=== PATIENT | female | born 1965 | race Caucasian/White ===

== ENCOUNTER → 2019-11-01 | Outpatient (CLI) | payer OTHER ==
[2019-11-01 13:11] VITALS: RESP 16
--- NOTE | 2019-11-01 13:44 | P.PAINCN ---
History of Present Illness - Reason for Consult Consult date: 11/01/19 - History of Present Illness This is 54 years old female with a chronic history of severe low back pain, started 3 years ago after she was trying to lift up her mom, after she fell, from that time on she started complaining of severe low back pain, the pain mostly in the low back area with occasional radiation to the posterior aspect of her left lower extremity, the pain is constant and increases with any activity or any changing in position, she tried physical therapy with minimal benefit, and she is currently on tramadol milligrams every 8 hours and Neurontin 300 mg every 8 hours and she is getting to moderate benefit from it, the intensity of the pain interfering with her quality of life, and preventing her from doing activities of daily livings, she denies any fever or night sweats which she denies any change in the bowel movement or urination, and she denies any motor or sensory deficit Past Medical History Past Medical History: GERD/Reflux Additional Past Medical History / Comment(s): CHRONIC BACK PAIN. STOMACH ULCER History of Any Multi-Drug Resistant Organisms: None Reported Past Surgical History: Bariatric Surgery, Cholecystectomy, Hysterectomy, Joint Replacement, Uterine Ablation Additional Past Surgical History / Comment(s): GASTRIC BYPASS-1999. LT RUSSEL. EGD Past Anesthesia/Blood Transfusion Reactions: No Reported Reaction Past Psychological History: Depression Additional Psychological History / Comment(s): DEPRESSION OFF AND ON-OK AT THIS TIME Smoking Status: Current every day smoker Past Alcohol Use History: None Reported Additional Past Alcohol Use History / Comment(s): SMOKES 1 PPD SINCE AGE 17 Past Drug Use History: Marijuana Additional Drug Use History / Comment(s): USES MARIJUANA USUALLY AT HS - Past Family History Mother Family Medical History: No Reported History Medications and Allergies Home Medications Medication Instructions Recorded Confirmed Type ALPRAZolam [Xanax] 0.25 mg PO BID PRN 06/08/19 10/31/19 History Acetaminophen [Tylenol 8 Hour] 1,300 mg PO Q6H 06/08/19 10/31/19 History Gabapentin [Neurontin] 300 mg PO TID 06/08/19 10/31/19 History Omeprazole 40 mg PO DAILY 06/08/19 10/31/19 History Ranitidine HCl 150 mg PO DAILY 06/08/19 10/31/19 History traMADol HCL [Ultram] 100 mg PO Q8H 06/08/19 10/31/19 History Allergies Allergy/AdvReac Type Severity Reaction Status Date / Time Milk Containing Products Allergy Rash/Hives Verified 11/01/19 13:03 Physical Exam Vitals: Vital Signs Resp 11/01/19 13:04 16 REVIEW OF ORGAN SYSTEMS: CONSTITUTIONAL: No fevers or chills. No recent weight loss. EYES: denies troubles with vision. HEENT: No difficulties with hearing. No nosebleeds. No difficulty swallowing. RESPIRATORY: Denies any troubles with breathing or dyspnea on exertion. CARDIOVASCULAR: Denies any chest pain, palpitations, or recent heart attacks. GASTROINTESTINAL: Denies fatty food intolerance. Has change in bowel habits and gas bloat. GENITOURINARY: Denies any blood in urine. Has increased urinary frequency. NEUROLOGICAL: no numbness and tingling along the distal extremities. No seizure disorders or headaches. MUSCULOSKELETAL: Has low back pain. SKIN:no skin cancer. No rash. PSYCHIATRIC: Denies current depression or suicidal thou ghts. ENDOCRINE: Denies current thyroid disorders. Denies any blood sugar glucose intolerance. HEME/LYMPHATIC: Denies any lumps and bumps around the neck. History of deep venous thrombosis. ALLERGY/IMMUNOLOGY: No immunoglobulin therapy. No immune deficiencies. BREAST: Denies current breast lumps, pain or nipple discharge. Physical Examinations : Constitutiona : Cooperative , not in acute distress . HEENT : nech : supple , no Lymphadenopathy , normal thyroid size . : eyes no ptosis , no icterus, no photophobia . : ENT normal of hearing , normal oropharynx , no Thrush . Respiratory : Chest clear to auscultations Bilaterally , no wheezing , no Rhonchi . Cardiovascula : regular rate and rhythem , S1 , S2 , no S3 , no S4. Gastrointestina : abdomen soft no tenderness , bowel sounds , no organomegally . Genitourinary : Defferred . neurologic : Cranial nerve II to XII intact , no focal neurological deffecit . psychatric : alert , oriented X 3 , appropriate affect , intact judgment and insight . Lymphatic : no Lymphadenopathy . musculoskeltal : Lumber spine moter stegnth lower extremities ,thigh and legs 5/5 Right side , 5/5 Left side deep tendon reflexes : normal Knee Jerk , normal ankle Jerk lumber facet Loading Test= positive Right , positive Left Range of motion of the lumbar spine Flexion 60 degrees, extension 10 degrees strait leg raising test = negative bilaterally Fabere test= negative bilaterally NO tenderness over the Sacroiliac joint on the Right , and Left sides . Results Comments: MRI of the lumbar spine = done at [facility]= L2 level lumbar bulging disc disease and multilevel lumbar facet, and multilevel lumbar disc herniation Assessment and Plan Plan: Assessment and plan=1-lumbar spondylosis with lumbar facet arthropathy. 2-lumbar herniated disc disease. 3-lumbar spinal stenosis. Patient could benefit from diagnostic medial branch block L2, L3, L4, L5, and if it is positive we'll proceed with RFA. Patient should continue her current pain medication Neurontin 300 3 times a day and Ultram 3 times a day. Time with Patient: Greater than 30 PQRS Measure Charge Sheet Measure #130: Documentation of Current Meds in Medical Chart: Patient's medications documented in chart Measure #226: Tobacco Use: Screen & Cessation Intervention: Pt screened for tobacco use AND intervention given Measure #111: Pneumonia Vaccination: Pneumococcal vaccine NOT administered or previously given Measure #47: Advance Care Plan: Advance care planning discussed & documented, pt chose/unable to give Measure #412: Opioid Treatment Agreement: No documentation of signed opioid treatment agreement Measure #408: Opioid Therapy Follow-up Evaluation: Patient had NO f/u eval minimum every 3 months during opioid therapy Measure #317: Preventitive Care & Scrn High Bld Press & F/U: Normal blood pressure, f/u not required Measure #128: Body Mass Index (BMI) Screening & Follow-up: BMI documented BELOW normal parameters - f/u documented Measure #131: Pain Assessment & Follow-up: Pain positive & plan documented Measure #431: Unhealthy Alcohol Use Preventative Care & Scrn: Patient not identified as an unhealthy alcohol user PQRS Narrative: Smoking Status Current every day smoker Pain Intensity [Lower Back] 8 Scale Used Numeric (1 - 10) Hx Alcohol Use (MH) No Home Medications: Ambulatory Orders ALPRAZolam [Xanax] 0.25 mg PO BID PRN 06/08/19 Acetaminophen [Tylenol 8 Hour] 1,300 mg PO Q6H 06/08/19 Gabapentin [Neurontin] 300 mg PO TID 06/08/19 Omeprazole 40 mg PO DAILY 06/08/19 Ranitidine HCl 150 mg PO DAILY 06/08/19 traMADol HCL [Ultram] 100 mg PO Q8H 06/08/19
== END | disposition home or self-care (01) ==
LOC: PNWHC3 12:56
PROVIDERS: ATTEND Specialist
DX: M48.061 Spinal stenosis, lumbar region without neurogenic claudication (principal); M51.26 Other intervertebral disc displacement, lumbar region; M47.816 Spondylosis without myelopathy or radiculopathy, lumbar region; F17.200 Nicotine dependence, unspecified, uncomplicated; Z79.891 Long term (current) use of opiate analgesic; Z79.899 Other long term (current) drug therapy
CPT/HCPCS: 99211

== ENCOUNTER 2019-11-15 06:03 | Day surgery (SDC) | payer OTHER ==
[2019-11-11 16:06] VITALS: BMI 28.8
[~2019-11-15 06:03] MED LIST: LACTATED RINGERS 1,000 ML IV SCH
[2019-11-15 06:24] VITALS: TEMP 96
[2019-11-15] MEDS ORDERED: LIDOCAINE 1% (10MG/ML) FOR IV START INTRADERMA ONE (06:41)
[2019-11-15] MEDS ORDERED: IOPAMIDOL M200 10 ML VIAL ONE (06:54)
[2019-11-15] MEDS ORDERED: MIDAZOLAM 2 MG/2 ML VIAL ONE (06:54)
[2019-11-15] MEDS ORDERED: LIDOCAINE 4% (PF) 5 ML AMP ONE (06:54)
--- NOTE | 2019-11-15 07:40 | P.PCN ---
Date of Procedure: 11/15/19 Procedure(s) Performed: PREOPERATIVE DIAGNOSIS : Lumbar spondylosis with Facet Arthropathy without myelopathy POSTOPERATIVE DIAGNOSIS: same PROCEDURE: First Diagnostic lumbar medial branch block with fluoroscopy at L2, L3, L4, L5 [bilateral] which covers facets L3-4, L4-5 and L5-S1 ANESTHESIA: Local anesthetic; moderate IV sedation with Versed 2 mg, sedation time 29 minutes Fluoroscopy was used for the procedure and images were saved in the radiology portion of the chart. Surgeon: Jalil Turcios MD PROCEDURE INDICATION: Lumbar back pain without radiculopathy, not responsive to conservative management. PROCEDURE DESCRIPTION: the patient was seen and identified in the preop holding area , risks and benefits and possible complications of the procedure and alternatives were discussed with the patient, and the patient agreed to proceed with the procedure and signed the consent . IV was started , vital signs were monitored during the procedure and fluoroscopy was used to maximize the benefit and accuracy of the needle placement, and sedation was given to decrease patient anxiety. Patient was taken to the procedure room and placed in prone position. The lumbar region was prepped using chlorhexidineX-2. Under strict sterile technique using AP fluoroscopy the bilateral sacral ala were identified and using ipsilateral oblique fluoroscopy ,the junction of the transverse process and the superior articulating process of the L3, L4, L5 vertebra which corresponds to the fluoroscopy image of the eye of the Jerardo dog for the medial branches were identified. Subsequently, after local infiltration of skin with lidocaine 1% 0.2 mL at each level , a 25-gauge 3.5" Quincke-type needle was placed at the junction of the base of the transverse process and the superior articular process at the appropriate level as well as the sacral ala, and the needle was advanced until the periosteum contacted, needle placement confirmed with AP and oblique fluoroscopy, 0.2 mL of Isovue 200 per level was injected which revealed no vascular uptake and after negative aspiration, 0.5 mL of lidocaine 4% was injected at each level and the needle subsequently removed . At the end of the procedure and the needles were removed and a bandage applied after the skin was cleaned. The patient was taken to recovery room in stable condition and monitors in the recovery room for 20-30 minutes and discharged home in stable condition after discharge criteria met and patient will follow up in clinic in 2 weeks EBL: Minimal COMPLICATION: None. Of note, the fluoroscopy machine stopped working during the procedure and had to be replaced with a working machine.
[2019-11-15] MEDS ORDERED: IV FLUID CONTINUATION 200 ML IV ONE (07:42)
[2019-11-15 07:59] VITALS: RESP 20
[2019-11-15 08:08] VITALS: BP 109/74; PULSE 89
--- NOTE | 2019-11-15 16:28 | FL ---
EXAMINATION TYPE: FL guided pain mgmt statistic DATE OF EXAM: 11/15/2019 CLINICAL HISTORY: Bilateral facet blocks of lumbar spine TECHNIQUE: Fluoroscopy. COMPARISON: None. FINDINGS: Fluoroscopic guidance was provided during procedure performed by Dr. Turcios. A total of 0.8 minutes of fluoroscopic time was utilized during the procedure and 7 spot images was acquired. IMPRESSION: As Above.
== END 2019-11-15 08:12 | disposition home or self-care (01) ==
LOC: ORPAIN 06:03
PROVIDERS: ATTEND Anesthesiology
DX: M47.816 Spondylosis without myelopathy or radiculopathy, lumbar region (principal); Z90.710 Acquired absence of both cervix and uterus
CPT/HCPCS: 64493; 64494; 64495; J2001; J2250; Q9966; 99152; 99153

== ENCOUNTER 2020-01-10 06:39 | Day surgery (SDC) | payer OTHER ==
[2019-12-19 13:49] VITALS: BMI 28.8
[2020-01-10 07:02] VITALS: TEMP 97
[2020-01-10] MEDS ORDERED: ROPIVACAINE 5MG/ML 20ML VIAL ONE (07:19)
[2020-01-10] MEDS ORDERED: MIDAZOLAM 2 MG/2 ML VIAL ONE (07:19)
[2020-01-10] MEDS ORDERED: TRIAMCINOLONE ACETONIDE 40 MG/ML 1 ML VIAL ONE (07:19)
--- NOTE | 2020-01-10 07:35 | P.PCN ---
Date of Procedure: 01/10/20 Surgeon: Betty Jarrett Pathology: none sent Condition: stable Disposition: PACU Description of Procedure: PREOPERATIVE DIAGNOSIS : 1- Lumbar spondylosis with Facet Arthropathy without myelopathy . 2- Lumber degenerative disc disease POSTOPERATIVE DIAGNOSIS: 1- Lumbar spondylosis with Facet Arthropathy without myelopathy . 2- Lumber degenerative disc disease PROCEDURE: Diagnostic bilateral L3 -4 , L4 -5 , and L5-S1 medial branch block under fluoroscopy Physician: Betty Jarrett MD ANESTHESIA: Local with 1% lidocaine; IV moderate conscious sedation with Versed 2 mg . EBL: Negligible COMPLICATION: None. PROCEDURE INDICATION: Chronic low back pain secondary to Facet arthropathy unresponsive to conservative treatment. PROCEDURE DESCRIPTION: the patient was seen and identified in the preop holding area , risks and benefits and possible complications of the procedure and alternatives were discussed with the patient, and the patient agreed to proceed with the procedure and signed the consent. IV was started and vital signs monitored during the procedure and fluoroscopy was used to maximize the benefit and accuracy of the needle placement, sedation was given to decrease patient anxiety, patient was taken to the procedure room and placed in prone position vital signs monitored. The patient was brought into the procedure room and placed in prone position. Skin was prepped with Chloraprep and draped in a sterile manner. Lidocaine 1% was used to numb the skin up at the target points that were chosen as follows: at the L5-S1 level which corresponds to the dorsal ramus of L5 the target points were at the superior medial aspect of the sacral ala on each side of the spine on the AP view of fluoroscopy, and for theL2, L3 and L4 medial branches the target points were the connection between the transverse process and the superior to go process of L3, L4 and L5 respectively on the oblique views of fluoroscopy. I used 22-gauge 3-1/2 inch Quincke spinal needles for this procedure and after contacting bone at the target points mentioned above I injected 1 mL of a mixture of Kenalog 40 mg +5 MLS of Ropivacaine 0.5% PF . Patient tolerated procedure well. At the end of the procedure the needles removed and a bandage applied after the skin was cleaned the cleaning solution. patient was then taken to the recovery room in stable condition and monitored in the recovery room for 20-30 minutes and discharged home in stable condition after discharge criteria met . A copy of the needle placement picture was saved to the C-arm machine.
[2020-01-10 07:57] VITALS: RESP 16
[2020-01-10] MEDS ORDERED: IV FLUID CONTINUATION 500 ML IV ONE (08:00)
[2020-01-10 08:05] VITALS: BP 114/69; PULSE 81
--- NOTE | 2020-01-10 09:11 | FL ---
Fluoroscopy HISTORY: Pain 8 seconds fluoroscopy time supplied to the referring clinician. 5 intraoperative C-arm images docume nt the procedure. See dictated report from anesthesia.
== END 2020-01-10 08:21 | disposition home or self-care (01) ==
LOC: ORPAIN 06:39
PROVIDERS: ATTEND Anesthesiology
DX: G89.29 Other chronic pain (principal); M47.816 Spondylosis without myelopathy or radiculopathy, lumbar region; E07.9 Disorder of thyroid, unspecified; Z86.010 Personal history of colon polyps
CPT/HCPCS: 64493; 64494; 64495; J2250; J3301; J2795; 99152

== ENCOUNTER → 2020-02-01 | Outpatient (CLI) | payer OTHER ==
[2020-02-01 08:15] VITALS: BP 124/80; PULSE 81; RESP 14
--- NOTE | 2020-02-01 08:18 | P.PAINPG ---
Subjective Progress Note Date: 02/01/20 This is a follow-up visit for this 54 years old female with a chronic history of severe low back pain she is diagnosed with lumbar spondylosis with lumbar facet arthropathy, lumbar spinal stenosis and lumbar disc herniation, status post diagnostic medial branch block lumbar area x2 , she reported that her VAS before the first diagnostic block was 8/10 , and that he is dropped to 0-1/10 after the block , and the pain relief lasted for several hours, and the second diagnostic block her VAS was 8/10 , and the VAS dropped to 0/10 after the block and the pain relief was for 1-2 days, unfortunately the pain came back and she is currently complaining of severe continuous pain in the low back area which is constant, increased with any activity, she denies any fever or night sweats denies any motor or sensory deficit Objective - Exam Constitutiona : Cooperative , not in acute distress . HEENT : nech : supple , no Lymphadenopathy , normal thyroid size . : eyes no ptosis , no icterus, no photophobia . neurologic : Cranial nerve II to XII intact , no focal neurological deffecit . psychatric : alert , oriented X 3 , appropriate affect , intact judgment and insight . Lymphatic : no Lymphadenopathy . musculoskeltal : Lumber spine moter stegnth lower extremities ,thigh and legs 5/5 Right side , 5/5 Left side deep tendon reflexes : normal Knee Jerk , normal ankle Jerk lumber facet Loading Test= positive Right , positive Left Range of motion of the lumbar spine Flexion 60 degrees, extension 10 degrees strait leg raising test = negative bilaterally Fabere test= negative bilaterally NO tenderness over the Sacroiliac joint on the Right , and Left sides Assessment and Plan Plan: Assessment and plan=1-lumbar spondylosis with lumbar facet arthropathy. 2-lumbar herniated disc disease. 3-lumbar spinal stenosis. Patient had positive results after diagnostic medial branch block L2, L3, L4, L5, and we will proceed with RFA. Time with Patient: Less than 30 PQRS Measure Charge Sheet Measure #130: Documentation of Current Meds in Medical Chart: Patient's medications documented in chart Measure #226: Tobacco Use: Screen & Cessation Intervention: Pt screened for tobacco use AND intervention given Measure #111: Pneumonia Vaccination: Pneumococcal vaccine NOT administered or previously given Measure #47: Advance Care Plan: Advance care planning discussed & documented, pt chose/unable to give Measure #412: Opioid Treatment Agreement: No documentation of signed opioid treatment agreement Measure #408: Opioid Therapy Follow-up Evaluation: Patient had NO f/u eval minimum every 3 months during opioid therapy Measure #317: Preventitive Care & Scrn High Bld Press & F/U: Normal blood pressure, f/u not required Measure #128: Body Mass Index (BMI) Screening & Follow-up: BMI documented ABOVE normal parameters - f/u documented Measure #131: Pain Assessment & Follow-up: Pain positive & plan documented, Follow-up scheduled Measure #431: Unhealthy Alcohol Use Preventative Care & Scrn: Patient not identified as an unhealthy alcohol user PQRS Narrative: Smoking Status Current every day smoker Pain Intensity [Back] 7 Hx Alcohol Use (MH) No Home Medications: Ambulatory Orders ALPRAZolam [Xanax] 0.25 mg PO BID PRN 06/08/19 Acetaminophen [Tylenol 8 Hour] 1,300 mg PO Q6H 06/08/19 Gabapentin [Neurontin] 300 mg PO TID 06/08/19 Omeprazole 40 mg PO DAILY 06/08/19 traMADol HCL [Ultram] 100 mg PO Q8H 06/08/19 Albuterol Inhaler [Ventolin Hfa Inhaler] 2 puff INHALATION BID PRN 12/19/19 Calcium Carbonate [Tums] 500 mg PO TID PRN 01/05/20 Ranitidine HCl [Zantac] 1 cap PO DAILY PRN 01/10/20 Controlled Substance Measures - Controlled Substance Measures Is patient prescribed a controlled substance at discharge?: No
== END | disposition home or self-care (01) ==
LOC: PNWHC3 07:32
PROVIDERS: ATTEND Specialist
DX: M48.061 Spinal stenosis, lumbar region without neurogenic claudication (principal); M51.26 Other intervertebral disc displacement, lumbar region; M47.816 Spondylosis without myelopathy or radiculopathy, lumbar region; Z79.891 Long term (current) use of opiate analgesic; Z79.899 Other long term (current) drug therapy; F17.210 Nicotine dependence, cigarettes, uncomplicated
CPT/HCPCS: 99211

== ENCOUNTER 2020-03-02 06:40 | Day surgery (SDC) | payer OTHER ==
[2020-03-01 12:07] VITALS: BMI 28.6
[2020-03-02] MEDS ORDERED: LIDOCAINE 1% (10MG/ML) FOR IV START INTRADERMA ONE (07:07)
[2020-03-02 07:08] VITALS: RESP 16; TEMP 97.8
[2020-03-02] MEDS ORDERED: ROPIVACAINE 5MG/ML 20ML VIAL ONE (08:10)
[2020-03-02] MEDS ORDERED: methylPREDNISolone ACETATE 40 MG/ML 1 ML VIAL ONE (08:10)
[2020-03-02] MEDS ORDERED: PROPOFOL 10 MG/ML 20 ML VIAL IV ONE (08:12)
--- NOTE | 2020-03-02 08:49 | P.PCN ---
Date of Procedure: 03/02/20 Procedure(s) Performed: PREOPERATIVE DIAGNOSIS: 1-Lumbar Spondylosis with Facet Arthropathy without myelopathy. 2- Lumber herniated disc disease. POSTOPERATIVE DIAGNOSIS: 1- Lumbar Spondylosis with Facet Arthropathy without myelopathy. 2- Lumber herniated disc disease. PROCEDURES : Bilateral Radiofrequency thermocoagulation, L3 , L4 , and L5 medial branch, with fluoroscopic guidance (fluoroscopy images available in the radiology department) ( to denervate the facet joint at L4-5 ,and L5-S1 levels ) ANESTHESIA: Monitored anesthesia care provided by anesthesia department. EBL: Minimal PROCEDURE INDICATION: The patient with low back pain secondary to lumbar facet arthropathy who had more than 50% relief of her pain with previous diagnostic lumbar medial branch block with bupivacaine. PROCEDURE DESCRIPTION / TECHNIQUE: The patient was seen and identified in the preoperative area. Risks, benefits, complications, including but not limited to risk of infection ,bleeding , allergic reactions to the medications and no complete pain releife , and alternatives were discussed with the patient, the patient agreed to proceed with the procedure and signed the consent. IV was started. Vital signs remained stable throughout the procedure. Patient was taken to the OR and time out was completed. The patient was placed in the prone position on the procedure table. The lumber area was prepped and draped in the usual sterile fashion. . Vital signs were closely monitored during the procedure .IV sedation was used during the procedure to decrease patients anxiety. Using AP and then oblique fluoroscopy, the ``eye of the Jerardo dog corresponding to the connection between the superior and transverse articular processes of right L3, L4, and L5 were identified, marked, and localized with 1% lidocaine. Subsequently, a 18 -dn radiofrequency cannula with a 10- mm active tip was advanced guided by fluoroscopy to each of the``eyes of the Jerardo dog at right L3, L4, and L5. Each site then underwent sensory testing at 50 Hz and 0 to 1 volt and motor testing at 2.5 Hz and 0 to 3 volt with local stimulation, but no radicular symptoms down the legs. Thereafter each sites underwent radiofrequency thermocoagulation at 80 degrees celsius for 90 seconds after injecting 0.5 ml of PF Ropivacaine 1ml, then after the thermocoagulation done , 1 ml of the block solution containing Depo-Medrol 20 mg and 3 ml of Ropivacaine 0.5% was injected at the right L3 , L4 , and L5 , levels after negative aspiration of CSF and blood and with no paresthesias. Cannulas were retracted while injecting lidocaine 1% until the needle is out. The same procedure was repeated at the level of Left L3, L4, and L5 levels. At the end of the procedure, the skin was cleansed and bandages were applied. COMPLICATIONS: No acute complications. DISPOSITION / PLANS: The patient was placed in a supine position and transferred to the recovery area in a stable condition for observation and was discharged from the recovery room after meeting discharge criteria. Home discharge instructions given to the patient by the staff. The patient was reexamined prior to discharge. The patient will schedule a follow up in the clinic in 2-4 weeks.
[2020-03-02] MEDS ORDERED: IV FLUID CONTINUATION 1,000 ML IV ONE (08:57)
[2020-03-02 09:21] VITALS: BP 123/78; PULSE 78
--- NOTE | 2020-03-02 11:51 | FL ---
Fluoroscopy HISTORY: Pain 23 seconds fluoroscopy time supplied to the referring clinician. 8 intraoperative C-arm images docum ent the procedure. See dictated report from anesthesia.
== END 2020-03-02 09:33 | disposition home or self-care (01) ==
LOC: ORPAIN 06:40
PROVIDERS: ATTEND Specialist
DX: M51.16 Intervertebral disc disorders with radiculopathy, lumbar region (principal); M47.26 Other spondylosis with radiculopathy, lumbar region; E07.9 Disorder of thyroid, unspecified; Z91.011 Allergy to milk products; Z79.890 Hormone replacement therapy; Z79.899 Other long term (current) drug therapy
CPT/HCPCS: 64635; 64636; J1030; J2704; J2795; 99152; 99153

== ENCOUNTER → 2020-03-21 | Outpatient (CLI) | payer OTHER ==
[2020-03-21 09:11] VITALS: BP 129/82; PULSE 84; RESP 16; TEMP 98.1
--- NOTE | 2020-03-21 09:20 | P.PN ---
Subjective Progress Note Date: 03/21/20 This is a follow-up visit for this 54 years old female with a chronic history of severe low back pain, she stateswith lumbar spondylosis with lumbar facet arthropathy, lumbar spinal stenosis and lumbar disc herniation, the January 2020 with an RFA of the medial branch lumbar area, she had significant improvement of her pain, but currently she is complaining of low back pain with radiation to the buttock area bilaterally, and towards the hips bilaterally, he denies any motor or sensory deficit she denies any fever or night sweats which she denies any changes in bowel movement or urination. Objective - Vital Signs Vital signs: Vital Signs Temp 98.1 F 03/21/20 09:04 Pulse 84 03/21/20 09:04 Resp 16 03/21/20 09:04 BP 129/82 03/21/20 09:04 Pulse Ox 95 03/21/20 09:04 - Exam Physical Examinations : -Constitutiona : Cooperative , not in acute distress . -HEENT : nech : supple , no Lymphadenopathy , normal thyroid size . : eyes : no ptosis , no icterus, no photophobia . - neurologic : Cranial nerve II to XII intact , no focal neurological deffecit . -psychatric : alert , oriented X 3 , appropriate affect , intact judgment and insight . -Lymphatic : no Lymphadenopathy . - musculoskeltal : Lumber spine moter stegnth lower extremities ,thigh and legs 5/5 Right side , 5/5 Left side deep tendon reflexes : normal Knee Jerk , normal ankle Jerk lumber facet Loading Test = negative bilaterally Range of motion of the lumbar spine Flexion 30 degrees, extension 10 degrees strait leg raising test = negative bilaterally Fabere test= negative bilaterallyft . Assessment and Plan Plan: Assessment and plan=1-lumbar spinal stenosis. 2-lumbar disc herniation. 3-lumbar spondylosis with lumbar facet arthropathy without myelopathy. Patient continued to have low back pain after RFA of the medial branch lumbar area, she could benefit from lumbar epidural steroid injection under fluoroscopy guidance, L4 5 or L5- S1 Time with Patient: Less than 30
== END | disposition home or self-care (01) ==
LOC: PNWHC3 08:51
PROVIDERS: ATTEND Specialist
DX: M48.061 Spinal stenosis, lumbar region without neurogenic claudication (principal); M51.26 Other intervertebral disc displacement, lumbar region; M47.816 Spondylosis without myelopathy or radiculopathy, lumbar region
CPT/HCPCS: 99211

== ENCOUNTER 2020-05-01 10:01 | Day surgery (SDC) | payer OTHER ==
[2020-04-06 14:30] VITALS: BMI 28.6
[2020-05-01 10:26] VITALS: RESP 16; TEMP 97.6
[2020-05-01] MEDS ORDERED: LIDOCAINE 1% (10MG/ML) FOR IV START INTRADERMA ONE (10:26)
[2020-05-01] MEDS ORDERED: methylPREDNISolone ACETATE 40 MG/ML 1 ML VIAL ONE (10:53)
[2020-05-01] MEDS ORDERED: MIDAZOLAM 2 MG/2 ML VIAL ONE (10:53)
[2020-05-01] MEDS ORDERED: fentaNYL (PF) 50 MCG/ML 2 ML AMP ONE (10:53)
[2020-05-01] MEDS ORDERED: IOPAMIDOL M200 10 ML VIAL ONE (10:53)
[2020-05-01] MEDS ORDERED: IV FLUID CONTINUATION 1,000 ML IV ONE (11:08)
--- NOTE | 2020-05-01 11:15 | P.OP ---
Date of Procedure: 05/01/20 Preoperative Diagnosis: Lumbar radiculopathy, and lumbar spondylosis Postoperative Diagnosis: Lumbar radiculopathy, and lumbar spondylosis Procedure(s) Performed: L5-S1 epidural steroid injection under fluoroscopic guidance Anesthesia: MAC Surgeon: Fadi Spain Estimated Blood Loss (ml): 0 IV fluids (ml): 100 Urine output (ml): 0 Pathology: none sent Condition: stable Disposition: PACU Description of Procedure: The patient was seen and identified in the preoperative area. Risks, benefits, complications, and alternatives were discussed with the patient. The patient agreed to proceed with the procedure and signed the consent. IV was started, and vital signs were stable. Patient was taken to the procedure area, and time out was completed. The patient was placed in the prone position on procedure table and a pillow was placed under the abdomen to reduce lumbar lordosis. The lumbosacral area was prepped and draped in the usual sterile fashion. Critical pause was taken. Vital signs were closely monitored during the procedure. Using anterior-posterior fluoroscopy, the L5 - S1 interlaminar space was identified, and skin and deeper tissues were localized with 1% lidocaine. Using anterior-posterior fluoroscopy, lateral fluoroscopy, and [id number] technique, a 20 gauge 3.5 Tuohy epidural needle entered the epidural space. After negative aspiration of CSF and blood with no paresthesias, 1 ml of [id number] contrast dye was injected and an excellent epidurogram was seen. Again after negative aspiration of CSF and blood with no paresthesias, 7 mL of block solution was injected into the epidural space. Block solution contained 80 mg of Depo-Medrol, and 6 mL of preservative-free normal saline. Needle was withdrawn intact, skin was cleansed, and bandages were applied. COMPLICATIONS: None. DISPOSITION / PLANS: The patient was placed in a supine position and transferred to the recovery area in a stable condition for observation. Patient was discharged from the recovery room after meeting discharge criteria. Home discharge instructions given to the patient by the staff. The patient was reexamined prior to discharge. The patient will schedule a follow up in the clinic in 4 weeks. Plan - Discharge Summary Discharge Rx Participant: No New Discharge Prescriptions: No Action Gabapentin [Neurontin] 300 mg PO TID ALPRAZolam [Xanax] 0.25 mg PO BID PRN PRN Reason: Anxiety traMADol HCL [Ultram] 100 mg PO Q8H Omeprazole 40 mg PO DAILY Acetaminophen [Tylenol 8 Hour] 1,300 mg PO Q6H Albuterol Inhaler [Ventolin Hfa Inhaler] 2 puff INHALATION BID PRN PRN Reason: sob Calcium Carbonate [Tums] 500 mg PO TID PRN PRN Reason: Indigestion Ergocalciferol [Vitamin D2] 50,000 unit PO Q14D Levothyroxine Sodium [Synthroid] 1 tab PO DAILY Discharge Medication List ALPRAZolam [Xanax] 0.25 mg PO BID PRN 06/08/19 [History] Acetaminophen [Tylenol 8 Hour] 1,300 mg PO Q6H 06/08/19 [History] Gabapentin [Neurontin] 300 mg PO TID 06/08/19 [History] Omeprazole 40 mg PO DAILY 06/08/19 [History] traMADol HCL [Ultram] 100 mg PO Q8H 06/08/19 [History] Albuterol Inhaler [Ventolin Hfa Inhaler] 2 puff INHALATION BID PRN 12/19/19 [History] Calcium Carbonate [Tums] 500 mg PO TID PRN 01/05/20 [History] Ergocalciferol [Vitamin D2] 50,000 unit PO Q14D 04/24/20 [History] Levothyroxine Sodium [Synthroid] 1 tab PO DAILY 05/01/20 [History] Discharge/Stand Alone Forms: Anes Pain/[facility] Instructions
[2020-05-01 11:26] VITALS: BP 122/82; PULSE 76
--- NOTE | 2020-05-01 12:02 | FL ---
EXAMINATION TYPE: FL guided pain mgmt statistic DATE OF EXAM: 05/01/2020 HISTORY: Fluoroscopy time 2 seconds of fluoroscopy provided. IMPRESSION: 1. Fluoroscopy time.
== END 2020-05-01 11:44 | disposition home or self-care (01) ==
LOC: ORPAIN 10:01
DX: M47.26 Other spondylosis with radiculopathy, lumbar region (principal); Z79.890 Hormone replacement therapy; Z79.891 Long term (current) use of opiate analgesic; Z79.899 Other long term (current) drug therapy; Z91.011 Allergy to milk products; Z90.710 Acquired absence of both cervix and uterus; Z95.1 Presence of aortocoronary bypass graft; Z96.642 Presence of left artificial hip joint
CPT/HCPCS: 62323; J2250; J1030; J3010; Q9966

== ENCOUNTER → 2020-05-28 | Outpatient (CLI) | payer OTHER ==
[2020-05-28 11:02] VITALS: BP 145/92; PULSE 90; RESP 18; TEMP 98.5
--- NOTE | 2020-05-28 11:36 | P.PN ---
Subjective Progress Note Date: 05/28/20 This is a follow-up visit for this 54 years old female with a chronic history of severe low back pain, patient diagnosed with multilevel lumbar degenerative disc disease and lumbar spondylosis with lumbar facet arthropathy, previously would have then RFA of the medial branch lumbar area and later on we did lumbar epidural steroid injection, she continued to have severe low back pain the pain is constant and increases with any activity interfere with the quality of life Objective - Vital Signs Vital signs: Vital Signs Temp 98.5 F 05/28/20 10:58 Pulse 90 05/28/20 10:58 Resp 18 05/28/20 10:58 BP 145/92 05/28/20 10:58 Pulse Ox 97 05/28/20 10:58 - Exam Constitutiona : Cooperative , not in acute distress . HEENT : nech : supple , no Lymphadenopathy , normal thyroid size . : eyes no ptosis , no icterus, no photophobia . neurologic : Cranial nerve II to XII intact , no focal neurological deffecit . psychatric : alert , oriented X 3 , appropriate affect , intact judgment and insight . Lymphatic : no Lymphadenopathy . musculoskeltal : Lumber spine moter stegnth lower extremities ,thigh and legs 5/5 Right side , 5/5 Left side deep tendon reflexes : normal Knee Jerk , normal ankle Jerk lumber facet Loading Test= positive Right , positive Left Range of motion of the lumbar spine Flexion 60 degrees, extension 10 degrees strait leg raising test = negative bilaterally Fabere test= negative bilaterally NO tenderness over the Sacroiliac joint on the Right , and Left sides Assessment and Plan Plan: MRI of the lumbar spine = done at [facility]= L2 level lumbar bulging disc disease and multilevel lumbar facet, and multilevel lumbar disc herniation, L4 5 spondylolisthesis and central canal stenosis Assessment and plan=1-lumbar spinal stenosis. 2-lumbar disc herniation. 3-lumbar spondylosis with lumbar facet arthropathy without myelopathy. Patient continued to have low back pain after RFA of the medial branch lumbar area, and she continued to have severe low back pain after lumbar epidural steroid injection, patient will be referred to see Dr. Meng (spine surgeon for evaluation for possible surgical intervention) She will follow up in the pain clinic when necessary Time with Patient: Less than 30
== END | disposition home or self-care (01) ==
LOC: PNWHC3 10:52
PROVIDERS: ATTEND Specialist
DX: M48.061 Spinal stenosis, lumbar region without neurogenic claudication (principal); M51.26 Other intervertebral disc displacement, lumbar region; M47.816 Spondylosis without myelopathy or radiculopathy, lumbar region
CPT/HCPCS: 99211

== ENCOUNTER → 2024-02-16 | Outpatient (CLI) | payer OTHER ==
--- NOTE | 2024-02-16 14:18 | XR ---
EXAMINATION TYPE: XR Hip Complete LT DATE OF EXAM: 02/16/2024 COMPARISON: NONE HISTORY: 58-year-old female M25.552 TECHNIQUE: 2 views FINDINGS: There is a left hip hemiarthroplasty present. However, severe degenerative change along the superior weight-bearing aspect of the kenaitze acetabulum with suspected complete loss of articular ca rtilage and development of subchondral sclerosis and marginal spurring. The femoral stem component ap pears well seated. IMPRESSION: 1. Previous left hip hemiarthroplasty. Femoral stem appears well seated and intact. 2. However, there is a severe degenerative change along the acetabular side of the joint. [facility], , 02/16/2024 2:15 PM
== END | disposition home or self-care (01) ==
LOC: RADXRMAIN 12:33
PROVIDERS: ATTEND Family Medicine
CPT/HCPCS: 73502